=== PATIENT | female | born 1990 | race Caucasian/White ===

== ENCOUNTER 2020-12-01 09:15 | Outpatient (CLI) | payer OTHER ==
[~2020-12-01 09:15] MED LIST: ZYRTEC10 M3
== END 2020-12-01 09:33 | disposition home or self-care (01) ==
LOC: RX STUDY 09:15
PROVIDERS: ATTEND Obstetrics & Gynecology
DX: Z34.90 Encounter for supervision of normal pregnancy, unspecified, unspecified trimester (principal); N91.2 Amenorrhea, unspecified; E78.5 Hyperlipidemia, unspecified; E34.9 Endocrine disorder, unspecified; N95.1 Menopausal and female climacteric states; E23.6 Other disorders of pituitary gland; R19.00 Intra-abdominal and pelvic swelling, mass and lump, unspecified site; N39.0 Urinary tract infection, site not specified; E55.9 Vitamin D deficiency, unspecified; N73.9 Female pelvic inflammatory disease, unspecified; A60.04 Herpesviral vulvovaginitis; N97.9 Female infertility, unspecified

== ENCOUNTER 2021-04-27 11:33 | Outpatient (CLI) | payer OTHER | END 2021-04-27 11:38 | disposition home or self-care (01) | LOC: RAD 11:33 → SONOGRAMA 11:33 → RAD 11:38 | PROVIDERS: ATTEND Pathology Anatomic Pathology & Clinical Pathology | DX: R59.0 Localized enlarged lymph nodes (principal) ==

== ENCOUNTER 2021-11-10 09:17 | Outpatient (CLI) | payer OTHER | END 2021-11-10 11:20 | disposition home or self-care (01) | LOC: PRENATAL 09:17 | PROVIDERS: ATTEND Obstetrics & Gynecology Maternal & Fetal Medicine | DX: O35.0XX0 Maternal care for (suspected) central nervous system malformation in fetus, not applicable or unspecified (principal); O35.3XX0 Maternal care for (suspected) damage to fetus from viral disease in mother, not applicable or unspecified; O30.90 Multiple gestation, unspecified, unspecified trimester; O34.40 Maternal care for other abnormalities of cervix, unspecified trimester; Z3A.26 26 weeks gestation of pregnancy ==

== ENCOUNTER 2021-11-21 22:02 | Outpatient (CLI) | payer OTHER ==
[2021-11-21] MEDS ORDERED: PRENATAL TABLE1 EAC3 (23:17)
[2021-11-21] MEDS ORDERED: INTEGRA PLUS C1 EACH (23:17)
[2021-11-21] MEDS ORDERED: CHILDREN'S ASPI81 MG (23:18)
[2021-11-21] MEDS ORDERED: PROBIOTIC ACID1 EAC1 (23:19)
== END 2021-11-22 12:16 | disposition home or self-care (01) ==
LOC: OBS/DEL 22:02
PROVIDERS: ATTEND Specialist
DX: O26.893 Other specified pregnancy related conditions, third trimester (principal); O30.003 Twin pregnancy, unspecified number of placenta and unspecified number of amniotic sacs, third trimester; Z3A.28 28 weeks gestation of pregnancy; Z91.048 Other nonmedicinal substance allergy status

== ENCOUNTER 2021-11-27 09:45 | Outpatient (CLI) | payer OTHER ==
[~2021-11-27 09:45] MED LIST changes: +CHILDREN'S ASPI81 MG; +INTEGRA PLUS C1 EACH; +PRENATAL TABLE1 EAC3; +PROBIOTIC ACID1 EAC1
== END 2021-11-27 11:23 | disposition home or self-care (01) ==
LOC: PRENATAL 09:45
PROVIDERS: ATTEND Obstetrics & Gynecology Maternal & Fetal Medicine
DX: O26.849 Uterine size-date discrepancy, unspecified trimester (principal); Z3A.29 29 weeks gestation of pregnancy; O30.90 Multiple gestation, unspecified, unspecified trimester; O36.5990 Maternal care for other known or suspected poor fetal growth, unspecified trimester, not applicable or unspecified

== ENCOUNTER 2021-12-04 10:29 | Outpatient (CLI) | payer OTHER | END 2021-12-04 12:00 | disposition home or self-care (01) | LOC: PRENATAL 10:29 | PROVIDERS: ATTEND Obstetrics & Gynecology Maternal & Fetal Medicine | DX: O30.90 Multiple gestation, unspecified, unspecified trimester (principal); O36.5990 Maternal care for other known or suspected poor fetal growth, unspecified trimester, not applicable or unspecified; O30.049 Twin pregnancy, dichorionic/diamniotic, unspecified trimester; Z3A.30 30 weeks gestation of pregnancy ==

== ENCOUNTER 2021-12-11 09:00 | Outpatient (CLI) | payer OTHER | END 2021-12-11 10:00 | disposition home or self-care (01) | LOC: PRENATAL 09:00 | PROVIDERS: ATTEND Obstetrics & Gynecology Maternal & Fetal Medicine | DX: O30.90 Multiple gestation, unspecified, unspecified trimester (principal); O36.5990 Maternal care for other known or suspected poor fetal growth, unspecified trimester, not applicable or unspecified; Z3A.31 31 weeks gestation of pregnancy ==

== ENCOUNTER 2021-12-18 09:06 | Outpatient (CLI) | payer OTHER | END 2021-12-18 10:20 | disposition home or self-care (01) | LOC: PRENATAL 09:06 | PROVIDERS: ATTEND Obstetrics & Gynecology Maternal & Fetal Medicine | DX: O26.849 Uterine size-date discrepancy, unspecified trimester (principal); Z3A.32 32 weeks gestation of pregnancy; O30.90 Multiple gestation, unspecified, unspecified trimester; O36.5990 Maternal care for other known or suspected poor fetal growth, unspecified trimester, not applicable or unspecified ==

== ENCOUNTER 2021-12-31 09:45 | Outpatient (CLI) | payer OTHER | END 2021-12-31 10:50 | disposition home or self-care (01) | LOC: PRENATAL 09:45 | PROVIDERS: ATTEND Obstetrics & Gynecology Maternal & Fetal Medicine | DX: O30.90 Multiple gestation, unspecified, unspecified trimester (principal); O36.5990 Maternal care for other known or suspected poor fetal growth, unspecified trimester, not applicable or unspecified; O24.419 Gestational diabetes mellitus in pregnancy, unspecified control; Z3A.34 34 weeks gestation of pregnancy ==

== ENCOUNTER 2022-01-08 09:23 | Outpatient (CLI) | payer OTHER | END 2022-01-08 10:57 | disposition home or self-care (01) | LOC: PRENATAL 09:23 | PROVIDERS: ATTEND Obstetrics & Gynecology Maternal & Fetal Medicine | DX: O26.849 Uterine size-date discrepancy, unspecified trimester (principal); O30.90 Multiple gestation, unspecified, unspecified trimester; O36.5990 Maternal care for other known or suspected poor fetal growth, unspecified trimester, not applicable or unspecified; Z3A.35 35 weeks gestation of pregnancy ==

== ENCOUNTER 2022-01-15 10:14 | Outpatient (CLI) | payer OTHER ==
[2022-01-18] MEDS ORDERED: INTEGRA CAPSUL1 EACH PO (12:20)
== END 2022-01-15 11:02 | disposition home or self-care (01) ==
LOC: NST 10:14
PROVIDERS: ATTEND Specialist
DX: Z34.83 Encounter for supervision of other normal pregnancy, third trimester (principal)

== ENCOUNTER 2022-01-22 06:15 | Inpatient (IN) | payer OTHER ==
[~2022-01-22] VITALS: Ht 167.6 cm; Wt 2.3 kg
[~2022-01-22 06:15] MED LIST changes: +INTEGRA CAPSUL1 EACH PO
[2022-01-25] MEDS ORDERED: COLACE100 MG PO (08:06)
[2022-01-25] MEDS ORDERED: IBUPROFEN800 MG PO (08:06)
== END 2022-01-25 13:04 | disposition home or self-care (01) | DRG 788 ==
LOC: O/R 06:15 → OB/GYN 06:15
PROVIDERS: ADMIT Specialist; ATTEND Specialist
PROC: 4A1HXCZ Monitoring of Products of Conception, Cardiac Rate, External Approach (ICD-10-PCS; 2022-01-22)
PROC: 10D00Z1 Extraction of Products of Conception, Low, Open Approach (ICD-10-PCS; principal; 2022-01-22 07:00)
DX: O30.043 Twin pregnancy, dichorionic/diamniotic, third trimester (principal); O24.410 Gestational diabetes mellitus in pregnancy, diet controlled; Z3A.37 37 weeks gestation of pregnancy; Z37.2 Twins, both liveborn; Z20.822 Contact with and (suspected) exposure to COVID-19